=== PATIENT | female | born 1960 | race African-American/Black ===

== ENCOUNTER 2021-06-10 18:04 | Emergency (ER) | payer OTHER ==
[~2021-06-10] VITALS: Ht 157.5 cm; Wt 60.0 kg
[2021-06-10 18:10] VITALS: BP_SYST 173
[2021-06-11] MEDS ORDERED: METF-414 MT (20:18)
[2021-06-11] MEDS ORDERED: AMLO2.5T2 MT (20:19)
== END 2021-06-10 20:35 | disposition left against medical advice (07) ==
LOC: ER 18:04
DX: Z53.21 Procedure and treatment not carried out due to patient leaving prior to being seen by health care provider (principal); R42 Dizziness and giddiness
CPT/HCPCS: 93005

== ENCOUNTER 2021-06-11 15:32 | Emergency (ER) | payer OTHER ==
[~2021-06-11] VITALS: Ht 157.5 cm; Wt 59.0 kg
[2021-06-11] MEDS ORDERED: ONDANSETRON HCL 4MG/2ML INJ IV STA (17:37)
[2021-06-11] MEDS ORDERED: SODIUM CHLORIDE 0.9% 1,000 ML IV ONE (17:45)
[2021-06-11 18:12] LABS: EOSINOPHILS % 1.2 % (0.0-5.0); HEMATOCRIT. 49.8 % (36.0-48.0); HEMOGLOBIN. 16.7 g/dL (12.0-16.0); LYMPHOCYTES % 28.4 % (20.0-50.0); MEAN CORPUSCULAR HEMOGLOBIN 31.5 pg (28.0-32.0); MEAN CORPUSCULAR VOLUME 93.7 fL (81.0-99.0); MEAN PLATELET VOLUME 9.6 fl (7.4-10.4); MONOCYTES % 7.5 % (2.0-8.0); NEUTROPHILS % 61.9 % (40.0-76.0); PLATELET 262 x1000/uL (130-400); RED BLOOD CELL COUNT 5.31 mill/uL (4.2-5.4); RED CELL DISTRIBUTION WIDTH 12.9 % (11.6-14.6)
[2021-06-11 18:28] LABS: CHLORIDE 95 mEq/L (98-107)
[2021-06-11 18:50] LABS: CLARITY URINE CLEAR (CLEAR); COLOR URINE YELLOW (YELLOW); KETONES URINE TRACE (NEGATIVE); LEUKOCYTE ESTERASE URINE NEGATIVE (NEGATIVE); NITRITE URINE NEGATIVE (NEGATIVE); OCCULT BLOOD URINE NEGATIVE (NEGATIVE); PH URINE 5.5 (4.5-8.0); PROTEIN URINE TRACE (NEGATIVE); SPECIFIC GRAVITY URINE 1.037 (1.005-1.030); UROBILINOGEN URINE 0.2 E.U./dL (0.2-1.0)
[2021-06-11] MEDS ORDERED: METF-414 MT (20:18)
[2021-06-11] MEDS ORDERED: AMLO2.5T2 MT (20:19)
[2021-06-11 20:45] VITALS: BP 157/74
== END 2021-06-11 20:45 | disposition home or self-care (01) ==
LOC: ER 15:32
DX: I16.0 Hypertensive urgency (principal); E11.65 Type 2 diabetes mellitus with hyperglycemia; R42 Dizziness and giddiness
CPT/HCPCS: 36415; 70450; 80053; 81003; 85025; 93005; 96361; 96374; 99285; J2405; J7030

== ENCOUNTER 2021-06-15 10:01 | Emergency (ER) | payer OTHER ==
[~2021-06-15] VITALS: Ht 157.5 cm; Wt 61.0 kg
[~2021-06-15 10:01] MED LIST: AMLO2.5T2 MT; METF-414 MT
[2021-06-15 10:15] VITALS: BP 126/74
[2021-06-15] MEDS ORDERED: SODIUM CHLORIDE 0.9% 1,000 ML IV ONE (10:45)
[2021-06-15 10:46] LABS: BASOPHILS % 0.4 % (0.0-2.0); EOSINOPHILS % 0.8 % (0.0-5.0); HEMATOCRIT. 47.3 % (36.0-48.0); LYMPHOCYTES % 14.7 % (20.0-50.0); MEAN CORPUSCULAR HEMOGLOBIN 31.1 pg (28.0-32.0); MEAN CORPUSCULAR VOLUME 92.1 fL (81.0-99.0); MEAN PLATELET VOLUME 9.9 fl (7.4-10.4); MONOCYTES % 5.8 % (2.0-8.0); NEUTROPHILS % 78.3 % (40.0-76.0); PLATELET 273 x1000/uL (130-400); RED BLOOD CELL COUNT 5.14 mill/uL (4.2-5.4); RED CELL DISTRIBUTION WIDTH 12.3 % (11.6-14.6)
[2021-06-15 10:52] LABS: CHLORIDE 95 mEq/L (98-107)
[2021-06-15] MEDS ORDERED: MECLIZINE 25MG TABLET PO ONE (11:15)
[2021-06-15] MEDS ORDERED: MECL-159 PO (11:28)
== END 2021-06-15 12:21 | disposition home or self-care (01) ==
LOC: ER 10:40
DX: R42 Dizziness and giddiness (principal); E11.9 Type 2 diabetes mellitus without complications; Z79.84 Long term (current) use of oral hypoglycemic drugs
CPT/HCPCS: 36415; 71045; 80053; 85025; 93005; 96360; 99285; J7030; J8597; Z7610